=== PATIENT | female | born 1965 | race Two or more races ===

== ENCOUNTER 2021-03-03 06:40 | Day surgery (SDC) | payer OTHER ==
[~2021-03-03 06:40] MED LIST: CLONAZEPAM1 MG PO; JANUVIA100 MG PO; LIPOFEN150 MG PO; PROTONIX40 MG PO; SYNTHROID88 MCG PO; TENORMIN50 M1 PO; VOLTAREN100 GM TOP; WELLBUTRIN XL150 M1 PO; [UNRECOGNIZED DRUG - OTHER]
[2021-03-03] MEDS ORDERED: PERCOCET 5-3251 EACH PO (10:54)
== END 2021-03-03 12:10 | disposition home or self-care (01) ==
LOC: CIR.AMB 06:40 → U 06:40 → CIR.AMB 10:45
PROVIDERS: ATTEND Obstetrics & Gynecology Gynecology
DX: D27.0 Benign neoplasm of right ovary (principal); Z20.822 Contact with and (suspected) exposure to COVID-19